=== PATIENT | female | born 1985 | race Caucasian/White ===

== ENCOUNTER → 2017-05-14 | Outpatient (CLI) | payer BC | END | disposition home or self-care (01) | LOC: C.LABSPEC 16:15 | PROVIDERS: ATTEND Obstetrics & Gynecology | DX: O09.811 Supervision of pregnancy resulting from assisted reproductive technology, first trimester (principal); Z3A.00 Weeks of gestation of pregnancy not specified ==

== ENCOUNTER → 2017-05-24 | Outpatient (CLI) | payer BC | END | disposition home or self-care (01) | LOC: C.PAPS 18:08 | PROVIDERS: ATTEND Obstetrics & Gynecology | DX: Z12.4 Encounter for screening for malignant neoplasm of cervix (principal) ==

== ENCOUNTER → 2017-05-24 | Outpatient (CLI) | payer BC ==
[2017-05-24 16:50] LABS: BASO % 0.3 %; BASO ABS # 0.02 K/uL (0-0.2); EOS % 1.1 %; EOS ABS # 0.08 K/uL (0-0.5); HEMATOCRIT 37.2 % (37-47); IG# 0.02 K/uL (0.00-0.02); LYMPH % 30.4 %; MEAN CELL VOLUME 83.8 fL (80-100); MEAN CORPUSCULAR HEMOGLOBIN 29.3 pg (25-34); MEAN CORPUSCULAR HGB CONC 34.9 g/dl (32-36); MEAN PLATELET VOLUME 9.9 fL (7.4-10.4); MONO % 7.3 %; MONO ABS # 0.53 K/uL (0.11-0.59); NEUT % 60.6 %; NEUT ABS # 4.39 K/uL (1.4-6.5); PLATELET COUNT 301 K/uL (130-400); RED CELL DISTRIBUTION WIDTH CV 12.5 % (11.5-14.5); RED CELL DISTRIBUTION WIDTH SD 38.4 fL (36.4-46.3); WHITE BLOOD COUNT 7.24 K/uL (4.8-10.8)
== END | disposition home or self-care (01) ==
LOC: C.LAB1850 15:22
PROVIDERS: ATTEND Obstetrics & Gynecology
DX: O09.811 Supervision of pregnancy resulting from assisted reproductive technology, first trimester (principal)

== ENCOUNTER → 2017-05-24 | Outpatient (CLI) | payer BC | END | disposition home or self-care (01) | LOC: C.LABSPEC 17:16 | PROVIDERS: ATTEND Obstetrics & Gynecology | DX: O09.811 Supervision of pregnancy resulting from assisted reproductive technology, first trimester (principal) ==

== ENCOUNTER → 2017-09-27 | Outpatient (CLI) | payer BC | END | disposition home or self-care (01) | LOC: C.LAB1850 07:24 | PROVIDERS: ATTEND Obstetrics & Gynecology | DX: O28.1 Abnormal biochemical finding on antenatal screening of mother (principal) ==

== ENCOUNTER 2017-11-07 18:11 | Outpatient (CLI) | payer BC ==
[2017-11-07] MEDS ORDERED: FERR50TA3 (19:37)
[2017-11-07] MEDS ORDERED: PRENTAB26 PO (19:37)
== END 2017-11-07 19:49 | disposition home or self-care (01) ==
LOC: C.OPB 18:11 → C.LD 18:11 → C.OPB 19:49
PROVIDERS: ATTEND Obstetrics & Gynecology
DX: O99.89 Other specified diseases and conditions complicating pregnancy, childbirth and the puerperium (principal); R51 Headache; O99.613 Diseases of the digestive system complicating pregnancy, third trimester; K21.9 Gastro-esophageal reflux disease without esophagitis; Z3A.35 35 weeks gestation of pregnancy

== ENCOUNTER 2019-06-29 05:29 | Inpatient (IN) ==
--- NOTE | 2019-06-26 17:03 | History & Physical Report ---
Date of Service June 26, 2019 Assessment & Plan (1) Breech presentation of fetus: (2) Supervision of normal intrauterine in multigravida: pt to be admitted 06/29/19 for planned c/s due to breech presentation. consent reviewed and signed. risks, alternatives and complications reviewed. labs day of admission, ivf, iv abx preop and scds planned. History of Present Illness Chief Complaint: planned section Primary Care Provider: Jaziel Vyas, DO 33yo at 39+wks ega who will present on 06/29/19 to L&D for planned jacob an section. Today she denies leaking, bleeding or contractions. She reports good movement. She has had an uncomplicated course with rh pos blood type, rubella immune and gbs carrier. Baby is breech and she declines ecv per previous counseling and ready to proceed with c/s. Had dvp today which is greater than 2cm and baby still breech. Current Active Problems Problem Status Onset Breech presentation of fetus Carrier of group B Streptococcus Supervision of normal intrauterine in multigravida Allergies Allergy/AdvReac Type Severity Reaction Status Date / Time No Known Allergies Allergy Verified 06/26/19 08:40 Home Medications Home Medications Medication Instructions Recorded Confirmed Type prenat.vits,bobby,sip-nycm-ihnwe 1 tab PO DAILY 12/15/18 06/26/19 History ranitidine HCl 150 mg capsule 150 mg PO BID #60 cap 03/13/19 06/26/19 Rx Patient History Medical History (Updated 06/04/19 @ 11:20 by Cyndi Bosch MD) screening for malformation using ultrasonics History of chicken pox Infertility IVF Normal labor (Resolved) PCOS (polycystic ovarian syndrome) headache in third trimester (Resolved) with 38 completed weeks gestation (Resolved) Surgical History History of endometrial biopsy [place] teeth extracted Family History (Updated 12/15/18 @ 10:15 by Geni Gandhi) Grandmother (Maternal) Osteoporosis Hypertension Father Heart disease Hypertension Other No pertinent family history Social History (Updated 12/15/18 @ 09:58 by Geni Gandhi) Preferred Language: Latvian Beliefs That Will Affect Care: None marital status: marital status details: Chet Sanderson (34) [phone] Current Living Situation: Spouse and Family Current Living Situation Comment: lives with spouse, daughter, dog current occupational status: employed current occupation: teacher-[employer] [place] Feels Safe at Home: Yes Smoking Status: Never smoker Second Hand Exposure: No ; Hx Alcohol Use: No Hx Substance Use: No Dental Care, Regularly: Yes Physical Activity Frequency: 3-4 Times per Week HOUSING [employer] History normal paps and no stds. Review of Systems All systems reviewed & are unremarkable except as noted in HPI & below Physical Exam Constitutional: WD/WN, vitals as above Gastrointestinal (Abdomen): Percussion/Palpation: abdomen soft (gravid); abdomen nontender Musculoskeletal: nt calves. Neurologic: grossly normal Psychiatric: A+Ox3, euthymic affect Genitourinary: fhts 145. Coding Level of Care Code None Diagnoses Breech presentation of fetus O32.1XX0 Supervision of normal intrauterine in multigravida Z34.80
[~2019-06-29 05:29] MED LIST: SODIUM CHLORIDE 0.9% 250 ML IV PRN
[2019-06-29] MEDS ORDERED: LACTATED RINGER'S 1,000 ML IV SCH ×2 (05:30→08:30)
[2019-06-29] MEDS ORDERED: CITRIC ACID/SODIUM CITRATE 15 ML UDC PO SCH (06:00)
[2019-06-29] MEDS ORDERED: CEFAZOLIN 2000MG 2,000 MG/15 ML SYR IV SCH (06:00)
[2019-06-29 06:05] LABS: Basophils # (auto) 0.02 K/uL (0-0.2); Basophils % (auto) 0.2 %; Eosinophils # (auto) 0.14 K/uL (0-0.5); Eosinophils % (auto) 1.2 %; Hematocrit (blood only) 36.8 % (37-47); Immature Granulocytes # (auto) 0.13 K/uL (0.00-0.02); Immature Granulocytes % (auto) 1.1 %; Lymphocytes # (auto) 2.64 K/uL (1.2-3.4); Lymphocytes % (auto) 22.7 %; Mean Platelet Volume 10.5 fL (7.4-10.4); Monocytes # (auto) 0.89 K/uL (0.11-0.59); Monocytes % (auto) 7.7 %; Neutrophils # (auto) 7.81 K/uL (1.4-6.5); Neutrophils % (auto) 67.1 %; Platelet Count 217 K/uL (130-400); RDW Coefficient of Variation 12.7 % (11.5-14.5); RDW Standard Deviation 39.3 fL (36.4-46.3); Red Blood Count 4.33 M/uL (4.2-5.4); White Blood Count 11.63 K/uL (4.8-10.8)
[2019-06-29 06:10] LABS: Mean Corpuscular Hgb Conc 35.3 g/dL (32-36)
--- NOTE | 2019-06-29 07:09 | Obstetrical Progress Note ---
Date of Service June 29, 2019 Subjective Confirmed Breech on U/S at bedside Results & Data Vital Signs (Past 12 Hours) Vital Signs Temp Pulse Resp BP 06/29/19 05:47 98.1 F 18 06/29/19 05:42 86 123/75 PG Care Time/CCT Total # of Minutes Spent Total Time Spent with Patient: Total time spent is greater than 50% in coordination of care (as documented) at patient's floor/unit and/or counseling patient: Coding Level of Care Code None
--- NOTE | 2019-06-29 07:23 | History & Physical Bridge Note ---
Date of Service June 29, 2019 History & Physical Bridge Note I have examined the patient, reviewed the History & Physical and in the interval since the performance of the History & Physical I have noted the following changes of clinical significance: no changes noted
--- NOTE | 2019-06-29 07:24 | Anesthesiology Consultation ---
Date of Service June 29, 2019 Assessment & Plan (1) Encounter for pre-operative examination: Chart Review Chart Review: Acceptable Risk for Surgery Consults Requested none ASA ASA2 Proposed Anesthesia Anesthesia Type: Spinal Risk / Benefits Reviewed With: PT / POA / Parent / Guardian, Accepts Plan and Informed Consent Obtained History Surgery Operation Date: 06/29/19 09:10 Proposed Procedures p Section in LD - Martina Paulino MD, FACOG Height/Weight Height: 5 ft 5 in Weight: 73.482 kg Allergies Allergy/AdvReac Type Severity Reaction Status Date / Time No Known Allergies Allergy Verified 06/29/19 05:34 Medications Home Medications Medication Instructions Recorded Confirmed Last Taken prenat.vits,bobby,tan-iaqk-bqlri 1 tab PO DAILY 12/15/18 06/29/19 06/29/19 ranitidine HCl 150 mg capsule 150 mg PO BID #60 cap 03/13/19 06/29/19 Unknown NPO Date Last Intake of Fluids: 06/28/19 Time Last Intake of Fluids: 22:00 Date Last Intake of Solids: 06/28/19 Time Last Intake of Solids: 21:30 Past Medical History Medical History screening for malformation using ultrasonics History of chicken pox Infertility IVF Normal labor (Resolved) PCOS (polycystic ovarian syndrome) headache in third trimester (Resolved) with 38 completed weeks gestation (Resolved) Exercise / Class Metabolic Activity II 4-5 Yardwork/Stairs/Walk up hill Past Family History Family History Grandmother (Maternal) Osteoporosis Hypertension Father Heart disease Hypertension Other No pertinent family history Past Surgical History Surgical History History of endometrial biopsy [place] teeth extracted Past Anesthesia History No Hx of Anesthesia Complications History of PONV No Hx of Motion Sickness and History of PONV Social History Smoking Status: Never smoker Hx Alcohol Use: No Hx Substance Use: No substance use type: does not use Review of Systems Negative for chest pain or shortness of breath. Patient denies active symptoms of GERD. Patient denies history of abnormal bleeding or bleeding disorder. Patient denies active use of anticoagulants other than low dose aspirin. Patient denies numbness, tingling or weakness in lower extremities. Physical Exam Vital Signs Last Vital Signs Temp 36.7 C 06/29/19 05:47 Pulse 86 06/29/19 05:42 Resp 18 06/29/19 05:47 BP 123/75 06/29/19 05:42 Constitutional not obese () ENMT Mouth: no TMJ abnormality and oral opening not small Thyromental Distance: > or= 3.5 Finger Breadths Mallampati Class: I Neck normal visual inspection; neck extension not limited Respiratory normal respiratory effort Auscultation: lungs clear to auscultation bilaterally Cardiovascular Rate/Rhythm: regular rate and regular rhythm Heart Sounds: no murmur Neurologic moves all extremities Motor/Sensory: no sensory deficit Psychiatric Orientation: alert and oriented x 3 Testing Laboratory Results 06/29/19 05:55 Blood Type O Positive 06/29/19 05:55 Antibody Screen NEGATIVE 06/29/19 05:55
[2019-06-29] MEDS ORDERED: MoRPHine SULFATE PF 1 MG/ML 10 ML AMP/VIAL ONE (07:32)
[2019-06-29] MEDS ORDERED: fentaNYL citrate 100 MCG/2 ML VIAL ONE (07:32)
[2019-06-29] MEDS ORDERED: ONDANSETRON INJ 2 MG/ML 2 ML VIAL ONE (08:11)
[2019-06-29] MEDS ORDERED: PHENYLEPHRINE 100MCG/ML 5ML SYR ONE (08:11)
[2019-06-29] MEDS ORDERED: OXYTOCIN 10 UNITS/ML VIAL ONE (08:11)
[2019-06-29] MEDS ORDERED: ePHEDrine sulfate 50 MG/ML AMP IV PRN (08:13)
[2019-06-29] MEDS ORDERED: HYDROmorphone INJ 0.5 MG/0.5 ML SYR IV PRN (08:13)
[2019-06-29] MEDS ORDERED: LACTATED RINGER'S 500 ML IV PRN (08:13)
[2019-06-29] MEDS ORDERED: DiphenhydrAMINE HCL 50 MG/ML VIAL IV PRN (08:13)
[2019-06-29] MEDS ORDERED: ACETAMINOPHEN 1000 MG/100 ML IV IV PRN (08:13)
[2019-06-29] MEDS ORDERED: MoRPHine SULFATE PF 1 MG/ML 10 ML AMP/VIAL INT SPINAL ONE (08:13)
[2019-06-29] MEDS ORDERED: NALBUPHINE HCL INJ 10 MG/ML AMP IV PRN (08:13)
[2019-06-29] MEDS ORDERED: NALOXONE HCL 0.4 MG/1 ML VIAL/CARP IV PRN (08:13)
[2019-06-29] MEDS ORDERED: ONDANSETRON INJ 2 MG/ML 2 ML VIAL IV PRN (08:13)
[2019-06-29] MEDS ORDERED: NALOXONE HCL 0.08 MG in SYRINGE 1.8 ML IV PRN (08:13)
[2019-06-29] MEDS ORDERED: NALOXONE HCL 1 MG in SODIUM CHLORIDE 0.9% 1000ML 1,000 ML IV PRN (08:13)
[2019-06-29] MEDS ORDERED: SODIUM CHLORIDE 0.9% 1000ML 1,000 ML IV SCH (08:15)
[2019-06-29] MEDS ORDERED: DC INTRASPINAL MORPHINE SCH (08:15)
[2019-06-29] MEDS ORDERED: NO NARCOTICS OR SEDATIVES SCH (08:15)
[2019-06-29] MEDS ORDERED: KETOROLAC 30 MG/ML VIAL ONE ×2 (08:20→08:22)
[2019-06-29] MEDS ORDERED: HYDROCORTISONE ACETATE 25 MG SUPP PR PRN (08:24)
[2019-06-29] MEDS ORDERED: DIPHTHERIA/TETANUS/PERTUSSIS 0.5 ML SYR/VIAL IM ONE (08:24)
[2019-06-29] MEDS ORDERED: BENZOCAINE 20% AER SPR 82.5 GM CAN EXT PRN (08:24)
[2019-06-29] MEDS ORDERED: SUPERCREAM 0.870% 15 GM JAR EXT PRN (08:24)
--- NOTE | 2019-06-29 08:33 | Post Operative Brief Note ---
PG Immediate Post Op with CF Date of Surgery June 29, 2019 Pre & Post Diagnosis Operation Date: 06/29/19 09:10 Pre-Op Diagnosis: Breech Presentation of Fetus; 39 Weeks Post-Op Diagnosis: Same;Delivery of a live female child at 0800 I identified the patient and participated in the time-out.: Yes Procedure Operation Date: 06/29/19 09:10 Actual Procedures Primary Low Transverse Section Surgeon Martina Paulino MD, FACOG [facility] [facility] [employer] Jeancarlos Estimated Blood Loss 650 Findings Consistent with Post-Op Diagnosis (viable male , apgars 8,9. normal uterus tubes and ovaries bilaterally) Fluids 750 Specimens Specimen Description: A.Placenta-hold B.Cord Blood Drains Urias Catheter Anesthesia Type Spinal Complications none Disposition Accompanied Patient To Recovery: No Disposition: L&D
--- NOTE | 2019-06-29 08:35 | Operative Report ---
PG Post Operative Report Pre & Post Diagnosis Operation Date: 06/29/19 09:10 Pre-Op Diagnosis: Breech Presentation of Fetus; 39 Weeks IUP Post-Op Diagnosis: Same;Delivery of a live female child at 0800 I identified the patient and participated in the time-out.: Yes Procedure Operation Date: 06/29/19 09:10 Actual Procedures Primary Low Transverse Section Surgeon Martina Paulino MD, FACOG Hog Handler Jeancarlos Estimated Blood Loss 650 Findings Consistent with Post-Op Diagnosis (viable female apgars 8,9, normal uterus tubes and ovaries bilaterally) Fluids 750 Specimens cord blood Drains schaffer Anesthesia Type Spinal Complications none Disposition Accompanied Patient To Recovery: No Disposition: L&D Indications 33yo at 39wks ega with known breech fetus, declines ecv, for planned section. She denies any labor signs and symptoms. She had bedside US by my partner and baby still breech. Ready to proceed. Description of Procedure The patient was taken to the operating room and identified. After adequate anesthesia was obtained, she was placed in the supine position with a leftward tilt on the operating table and prepped and draped in the usual sterile fashion. A schaffer catheter had already been placed. The knife was used to create a Pfannenstiel skin incision that was carried down to the underlying layer of fascia. The fascia was nicked in the midline and this opening was extended laterally using Bella scissors. Tony clamps were placed on the superior and inferior aspect of the fascial incision tenting it upward and the underlying rectus muscles were dissected off the overlying fascia both sharply and bluntly using Bella scissors. The rectus muscles were bluntly in the midline. The peritoneal cavity was bluntly entered into. This opening was stretched. The bladder blade was placed. The vesicouterine peritoneum was elevated and opened up into and the bladder flap was created digitally and bladder blade was replaced. The knife was used to create a hysterotomy and this opening was stretched. The operators hand was placed through the hysterotomy and the bladder blade was removed. The buttocks was elevated and with fundal pressure it was delivered. The body was rapidly delivered to the level of scapulae and the arms were swept across the anterior midline. The head was flexed and delivered. The cord was clamped and cut and the infant's mouth and nares were bulb suction. The was handed off to the awaiting pediatricians. Cord blood was obtained. The placenta was manually expressed. The uterus was exteriorized and cleared of all clots and debris. Dilute IV Pitocin was begun. The uterine tone was improving. The hysterotomy was closed in a running interlocking fashion using 0 Vicryl followed by a second imbricating layer of 0 Vicryl. The hysterotomy was hemostatic. The pelvis was irrigated. The uterus was returned to the abdomen. The gutters were cleared of all clots and debris. The hysterotomy was reinspected and a small bleeding site to the right of the hysterotomy was stitched with an figure of eight suture of 0-vicryl for excellent hemostasis. The fascia was then closed in running fashion using 0 Vicryl. The subcutaneous fat was copiously irrigated and reapproximated using 2-0 chromic. The skin was closed in a subcuticular fashion using 4-0 Vicryl. At this point the procedure was terminated. The patient was transferred to the recovery room in stable condition. All sponge, lap and needle counts are correct x2. I attest to the content of the Intraoperative Record and any orders documented therein. Any exceptions are noted below.
--- NOTE | 2019-06-29 09:52 | Anesthesiology Progress Note ---
Date of Service June 29, 2019 Anesthesia Post Procedure Vital Signs Vital Signs: Temp Pulse Resp BP Pulse Ox 06/29/19 09:50 56 L 111/68 06/29/19 09:49 54 L 97 06/29/19 09:44 65 97 06/29/19 09:40 58 L 103/58 L 06/29/19 09:39 57 L 97 06/29/19 09:34 60 97 06/29/19 09:30 57 L 18 109/75 06/29/19 09:29 61 97 06/29/19 09:24 58 L 97 06/29/19 09:20 62 18 112/77 06/29/19 09:19 66 97 06/29/19 09:14 62 98 06/29/19 09:10 61 20 110/75 06/29/19 09:09 62 97 06/29/19 09:04 64 98 06/29/19 09:00 63 20 114/58 L 06/29/19 08:59 65 99 06/29/19 08:54 71 98 06/29/19 08:49 60 108/63 98 06/29/19 08:44 56 L 96 06/29/19 08:40 36.3 C L 20 06/29/19 08:39 62 96 06/29/19 08:38 63 110/56 L 06/29/19 05:47 36.7 C 18 06/29/19 05:42 86 123/75 Transfer of Care Handoff Completed per policy Notes Mental Status: alert / awake / arousable and participated in evaluation Nausea / Vomiting: adequately controlled Pain: adequately controlled Airway Patency, RR, SpO2: stable & adequate BP & HR: stable & adequate Hydration State: stable & adequate Neuraxial Anesthesia: was administered and sensory block is resolving Anesthetic Complications: no major complications apparent and Pt Satisfied with anesthetic care
[2019-06-29] MEDS: OXYTOCIN 20 UNITS in LACTATED RINGER'S 1,000 ML IV SCH ×2 (11:04→19:52)
[2019-06-29] MEDS: KETOROLAC 30 MG/ML VIAL IV PRN ×2 (14:38→20:34)
[2019-06-29] MEDS: SIMETHICONE 80 MG CHEW PO SCH ×3 (14:48→20:34)
[2019-06-29] MEDS ORDERED: SODIUM CHLORIDE 0.9% 1000ML 500 ML IV ONE (18:40)
[2019-06-29] MEDS: DOCUSATE SODIUM 100 MG CAP PO SCH (20:34)
[2019-06-30] MEDS ORDERED: ONDANSETRON INJ 2 MG/ML 2 ML VIAL IV PRN (02:13)
[2019-06-30] MEDS ORDERED: DiphenhydrAMINE HCL 50 MG/ML VIAL IV PRN (02:13)
[2019-06-30] MEDS ORDERED: PROMETHAZINE HCL 25 MG in SODIUM CHLORIDE 0.9% 50 ML IV PRN (02:13)
[2019-06-30] MEDS: OXYCODONE/ACETAMINOPHEN 5mg/325mg TAB PO PRN ×5 (02:59→20:30)
[2019-06-30] MEDS: IBUPROFEN 600 MG TAB PO PRN ×5 (03:00→20:30)
[2019-06-30 07:21] LABS: Hemoglobin 7.9 g/dL (12.0-16.0); Mean Corpuscular Hgb Conc 34.3 g/dL (32-36); Mean Corpuscular Volume 84.6 fL (80-100); Platelet Count 174 K/uL (130-400); RDW Coefficient of Variation 12.8 % (11.5-14.5); RDW Standard Deviation 39.4 fL (36.4-46.3); Red Blood Count 2.72 M/uL (4.2-5.4); White Blood Count 12.45 K/uL (4.8-10.8)
[2019-06-30] MEDS: FERROUS SULFATE 325 MG TAB PO SCH (07:28)
[2019-06-30] MEDS: PRENATAL VITAMIN 1 TAB PO SCH (07:29)
[2019-06-30 07:30] LABS: Basophils # (auto) 0.01 K/uL (0-0.2); Basophils % (auto) 0.1 %; Eosinophils # (auto) 0.05 K/uL (0-0.5); Eosinophils % (auto) 0.4 %; Immature Granulocytes # (auto) 0.06 K/uL (0.00-0.02); Immature Granulocytes % (auto) 0.5 %; Lymphocytes # (auto) 1.27 K/uL (1.2-3.4); Lymphocytes % (auto) 10.2 %; Monocytes # (auto) 0.59 K/uL (0.11-0.59); Monocytes % (auto) 4.7 %; Neutrophils # (auto) 10.47 K/uL (1.4-6.5); Neutrophils % (auto) 84.1 %
[2019-06-30] MEDS: DOCUSATE SODIUM 100 MG CAP PO SCH ×2 (07:30→20:29)
[2019-06-30] MEDS: SIMETHICONE 80 MG CHEW PO SCH ×4 (07:33→20:30)
--- NOTE | 2019-06-30 07:51 | Obstetrical Progress Note ---
Date of Service June 30, 2019 Assessment & Plan (1) Breech presentation of fetus: (2) Status post primary low transverse section: will cont with routine care. stable. noted hgb, will see how she does ambulating. hgb ordered for tomorrow. await void, adv diet. ambulate. Day #:: 1 Subjective Passing Gas:: Yes Diet Tolerance:: clear liquids Lochia:: Small Feeding Type:: breast feeding having incisional pain, in bed, schaffer out this am. awaiting void. sitting up in bed. denies other complaints but requesting pain meds. hgb 7.9 this am. has repeat tomorrow. Physical Exam Constitutional WD/WN, vitals as above Respiratory normal respiratory effort, lungs clear to auscultation Cardiovascular Rate/Rhythm: regular rate and regular rhythm Gastrointestinal (Abdomen) Percussion/Palpation: abdomen soft; abdomen nontender FF at U and appropriately tender Musculoskeletal nt calves. Neurologic grossly normal Psychiatric A+Ox3, euthymic affect Results & Data Vital Signs (Past 12 Hours) Vital Signs Temp Pulse Resp BP Pulse Ox 06/30/19 03:05 97.5 F L 75 16 113/74 100 06/30/19 02:10 14 100 06/30/19 01:17 14 100 06/30/19 00:30 14 99 06/29/19 23:05 98.2 F 77 18 113/75 100 06/29/19 22:20 16 100 06/29/19 21:26 16 99 06/29/19 20:15 16 100
[2019-06-30] MEDS ORDERED: MAGNESIUM HYDROXIDE SUSP 30 ML UDC PO PRN (20:21)
[2019-06-30] MEDS ORDERED: bisacodyL 5 MG TABEC PO PRN (20:21)
[2019-07-01] MEDS: OXYCODONE/ACETAMINOPHEN 5mg/325mg TAB PO PRN ×4 (01:06→13:05)
[2019-07-01] MEDS: IBUPROFEN 600 MG TAB PO PRN ×4 (01:06→13:06)
[2019-07-01 06:04] LABS: Hematocrit (blood only) 19.3 % (37-47); Hemoglobin 6.7 g/dL (12.0-16.0)
--- NOTE | 2019-07-01 07:13 | Obstetrical Progress Note ---
Date of Service July 01, 2019 Assessment & Plan (1) : POD#2 doing well. Hgb has dropped to 6.7. I discussed this result with patient, and since she is asymptomatic and vital signs normal, do not think she needs to proceed with blood transfusion at this time. She is aware to alert nursing staff if she becomes symptomatic, as this may change plan. She is aware to take iron as soon as her bowel function resumes. Subjective Ambulation: ambulating normally Voiding: no voiding problems Passing Gas:: Yes Diet Tolerance:: regular diet Lochia:: Moderate Feeding Type:: breast feeding Feeling well - no complaints of weakness/dizziness. She has been ambulating in the halls. Eating/drinking well. Normal amount of lochia. Review of Systems All systems reviewed & are unremarkable except as noted in HPI & below Physical Exam Incision CDI. Abdomen soft. Constitutional WD/WN, vitals as above no acute distress Respiratory normal respiratory effort Cardiovascular Rate/Rhythm: regular rate and regular rhythm Gastrointestinal (Abdomen) Inspection/Auscultation: abdomen normal to inspection; abdomen not distended Percussion/Palpation: abdomen soft Genitourinary OB Exam Abdomen: + fundal height Fundus: + firm; not tender Results & Data Vital Signs (Past 12 Hours) Vital Signs Temp Pulse Resp BP Pulse Ox 06/30/19 23:20 36.9 C 91 H 18 106/61 06/30/19 20:10 36.9 C 92 H 18 116/71 98
[2019-07-01] MEDS ORDERED: bisacodyL 10 MG SUPP PR PRN (08:24)
[2019-07-01] MEDS: DOCUSATE SODIUM 100 MG CAP PO SCH (09:04)
[2019-07-01] MEDS: PRENATAL VITAMIN 1 TAB PO SCH (09:04)
[2019-07-01] MEDS: FERROUS SULFATE 325 MG TAB PO SCH (09:04)
[2019-07-01] MEDS: SIMETHICONE 80 MG CHEW PO SCH ×2 (09:04→13:02)
--- NOTE | 2019-07-04 07:59 | Discharge Summary ---
Date of Service Date of admission: June 29, 2019 Date of discharge: July 01, 2019 Admission HPI Per Admitting Provider 33yo at 39+wks bryan who is admitted on 06/29/19 to L&D for planned section. Today she denies leaking, bleeding or contractions. She reports good movement. She has had an uncomplicated course with rh pos blood type, rubella immune and gbs carrier. Baby is breech and she declines ecv per previous counseling and ready to proceed with c/s. Persistent breech presentation confirmed on day of procedure. Current Active Problems Problem Status Onset Breech presentation of fetus Carrier of group B Streptococcus Supervision of normal intrauterine in multigravida Discharge Data Consultations 06/29/19 05:27 Consult Anesthesiology Stat Procedures Performed Operation Date: 06/29/19 09:10 Actual Procedures Primary Low Transverse Section. Hospital Course (1) Breech presentation of fetus: (2) Status post primary low transverse section: The patient was admitted and underwent the above stated procedure without incident. The estimated blood loss was 650cc. Her post op recovery was uncomplicated. Her postop hemoglobin was 6.7. She did not have any symptoms associated with this anemia and was ambulating well. On her postop day #2 she was stable for discharge home and desired discharge. She was tolerating a regular diet, voiding, ambulating without problem and her pain was controlled on oral medications. She was sent home with discharge instructions and was to followup in 6wks for check up. She was given appropriate pain medicine scripts. She was instructed to start iron due to the anemia. Coding Level of Care Code None Diagnoses Breech presentation of fetus O32.1XX0 Status post primary low transverse section Z98.891
--- NOTE | 2019-07-06 14:33 | Coding Query ---
ANEMIA To promote full compliance with coding requirements relating to patient care, physician participation is requested in all cases of edi coordinator uncertainty. Please assist us with the question(s) below: Coding Question(s): Please specify the known or suspected type of anemia (documented in the discharge summary) by placing an "X" within the parenthesis (x). If other, please document type. Examples are: ( x) Acute blood loss anemia ( ) Acute Postoperative blood loss anemia ( ) Acute postoperative anemia due to dilutional fluids ( ) Iron deficient anemia ( ) Anemia, unspecified or other ( ) Other: (please specify) ( ) Unable to determine Thank you Joselin KC
== END 2019-07-01 16:05 | disposition home or self-care (01) | DRG 787 ==
LOC: ASU 05:29 → 4S1 05:39 → 4S2 11:21